=== PATIENT | female | born 1990 | race Caucasian/White ===

== ENCOUNTER 2018-07-18 04:40 | Emergency (ER) | payer OTHER ==
[2018-07-18] MEDS ORDERED: PROPARACAINE 0.5% OPHTH DROPS 15 ML BTL BOTH EYES STA (04:55)
[2018-07-18] MEDS ORDERED: FLUORESCEIN STRIPS 1 MG STRIP LEFT EYE ONE (04:55)
--- NOTE | 2018-07-18 04:56 | ED ---
Eye Problem HPI - General Chief complaint: Eye Problems Stated complaint: FB in eye-[facility] Time Seen by Provider: 07/18/18 04:50 Source: patient Mode of arrival: ambulatory Limitations: no limitations - History of Present Illness Initial comments: Kam is a previously healthy 28 yo female who comes to the ER today from work for evaluation of foreign body sensation in left eye. 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 Patient reports that Saturday she thought she got something in her eye but it stopped bothering her so she didn't think anything of it. Tonight she was at work and he can begin feeling a scratchy sensation in left side of her eye. She reports feeling like she might have something in her eye despite wearing glasses with side steinberg. She discussed this with coworkers and was advised to come to the ER for evaluation. Patient does not work contacts. - Related Data Allergies Allergy/AdvReac Type Severity Reaction Status Date / Time No Known Allergies Allergy Verified 07/18/18 04:51 Review of Systems ROS Statement: Those systems with pertinent positive or pertinent negative responses have been documented in the HPI. ROS Other: All systems not noted in ROS Statement are negative. Past Medical History Past Medical History: Diabetes Mellitus, Hypertension History of Any Multi-Drug Resistant Organisms: None Reported Past Surgical History: No Surgical Hx Reported Past Psychological History: No Psychological Hx Reported Smoking Status: Current every day smoker Past Alcohol Use History: Rare Past Drug Use History: None Reported General Exam - General Exam Comments Initial Comments: Physical Exam GENERAL: Patient is well-developed and well-nourished. Patient is nontoxic and well-hydrated and is in no distress. HENT: Normocephalic, Atraumatic. EYES: PERRL, EOMI There is injection and irritation of the left eye Staining reveals no obvious corneal abrasions or injury PULMONARY: Unlabored respirations CARDIOVASCULAR: RRR ABDOMEN: Non-Distended SKIN: Skin is clear with no lesions or rashes and otherwise unremarkable. : Deferred NEUROLOGIC: Patient is alert and oriented x3. Moving all extremities spontaneously MUSCULOSKELETAL: Normal extremities with adequate strength and full range of motion. No lower extremity swelling or edema. No calf tenderness. PSYCHIATRIC: Normal psychiatric evaluation Limitations: no limitations Course Vital Signs 07/18/18 04:49 Temperature 98.8 F Pulse Rate 80 Respiratory 16 Rate Blood Pressure 145/88 O2 Sat by Pulse 99 Oximetry Medical Decision Making - Medical Decision Making She was seen and evaluated history is obtained from patient Patient has a new job working a metal factory she is concerned that she may have scratched her left eye exam patient has been rubbing her eyes she feels like there something and it The eye was anesthetized with proparacaine, the lids were evaluated there is no foreign bodies noted No obvious corneal abrasion however significant irritation to the eye I discussed with the patient given that she is rubbing her eye and that it's very red I will give her erythromycin ointment to coat IM prevent the development of any infection because she is rubbing her eye. I advised her that she should likely get prescription safety glasses rather than just wearing regular glasses at work. Advised the patient follow up with up though for any persistent pain or return to the ER if she develops any redness, worsening pain or signs of infection. Disposition Clinical Impression: Irritation of eye Disposition: HOME SELF-CARE Condition: Stable Instructions (If sedation given, give patient instructions): Corneal Abrasion (ED) Additional Instructions: Apply erythromycin ointment every 4-6hrs while awake and immediately before bed for 3 days Is patient prescribed a controlled substance at d/c from ED?: No Referrals: Richard Santos MD [Primary Care Provider] - 1-2 days
[2018-07-18 05:03] VITALS: BP 145/88; PULSE 80; RESP 16; TEMP 98.8
[2018-07-18] MEDS ORDERED: ERYTHROMYCIN 5 MG/GM OPHTH OINT 3.5 GM TUBE LEFT EYE STA (05:09)
== END 2018-07-18 05:10 | disposition home or self-care (01) ==
LOC: EC 04:40
DX: H57.89 Other specified disorders of eye and adnexa (principal); F17.200 Nicotine dependence, unspecified, uncomplicated
CPT/HCPCS: 99283